=== PATIENT | male | born 1950 | race Caucasian/White ===

== ENCOUNTER → 2017-11-18 | Outpatient (CLI) | payer MEDICARE | END | disposition home or self-care (01) | LOC: LAB EV 18:29 | DX: E11.9 Type 2 diabetes mellitus without complications (principal) | CPT/HCPCS: 82043 ==

== ENCOUNTER → 2019-01-21 | Outpatient (CLI) | payer MEDICARE ==
[2019-01-21 14:13] LABS: Creatinine, Urine Random 94.1 mg/dL (27.00-270.00)
[2019-01-21 14:15] LABS: Microalb/Creat Ratio UR, Rand 39.958 mg/g (0.000-30.000); Microalbumin, Random Urine 37.6 mg/L (0.000-20.000)
== END | disposition home or self-care (01) ==
LOC: LAB EV 11:53 → LAB SHORT 11:53
PROVIDERS: Family Medicine
DX: E11.65 Type 2 diabetes mellitus with hyperglycemia (principal)
CPT/HCPCS: 82043; 82570

== ENCOUNTER 2019-05-07 12:46 | Day surgery (SDC) | payer MEDICARE ==
[~2019-05-07] VITALS: Ht 182.9 cm; Wt 127.7 kg
[~2019-05-07 12:46] MED LIST: ASCO500 PO; Benicar40 MG PO; CHOL10002 PO; FERSU300 PO; GLIM4 PO; INVOKANA100 MG PO; JANUMET XR 50-1 EAC1 PO; LO-DOSE ASPIRIN81 MG PO; NIAC500 PO; Zocor20 MG PO
--- NOTE | 2019-05-07 14:29 | NUR ---
05/07/19 [address] [place] UPDATED PATIENT AND ABOUT THE DELAY. IS OUT RUNNING ERRANDS AND SHE REQUESTED THAT WE CALL WHEN WE ARE FINISHED.
== END 2019-05-07 17:28 | disposition home or self-care (01) ==
LOC: ORSCSDS 12:46
PROVIDERS: Internal Medicine Gastroenterology
PROC: 0DBH8ZX Excision of Cecum, Via Natural or Artificial Opening Endoscopic, Diagnostic (ICD-10-PCS; principal; 2019-05-07 14:00)
DX: Z12.11 Encounter for screening for malignant neoplasm of colon (principal); Z86.010 Personal history of colon polyps; D12.0 Benign neoplasm of cecum; K57.30 Diverticulosis of large intestine without perforation or abscess without bleeding; K64.8 Other hemorrhoids; G47.33 Obstructive sleep apnea (adult) (pediatric); E11.9 Type 2 diabetes mellitus without complications; I10 Essential (primary) hypertension; E78.00 Pure hypercholesterolemia, unspecified; D64.9 Anemia, unspecified; E78.5 Hyperlipidemia, unspecified; E66.9 Obesity, unspecified; Z68.38 Body mass index [BMI] 38.0-38.9, adult; Z79.899 Other long term (current) drug therapy
CPT/HCPCS: 82947; 88305; J2250; J2704; J7120

== ENCOUNTER → 2020-07-29 | Outpatient (CLI) | payer MEDICARE ==
[2020-07-29 10:10] LABS: BASOPHILS ABSOLUTE AUTO 0.04 K/mm3 (0.00-0.23); BASOPHILS PERCENT AUTO 1 % (0-2); EOSINOPHILS ABSOLUTE AUTO 0.23 K/mm3 (0.00-0.68); EOSINOPHILS PERCENT AUTO 3 % (0-6); Hematocrit 48.5 % (37.0-53.0); Hemoglobin 15.7 g/dL (13.5-17.5); IMMATURE GRAN ABSOLUTE AUTO 0.02 K/mm3 (0.00-0.10); IMMATURE GRAN PERCENT AUTO 0 % (0-1); LYMPHOCYTES PERCENT AUTO 17 % (21-46); MONOCYTES ABSOLUTE AUTO 0.65 K/mm3 (0.16-1.47); MONOCYTES PERCENT AUTO 8 % (4-13); Mean Corpuscular HGB 29.1 pg (26.0-34.0); Mean Corpuscular HGB Conc 32.4 g/dL (31.5-36.5); Mean Corpuscular Volume 90 fL (80-100); Mean Platelet Volume 11.2 fL (9.1-12.4); NEUTROPHILS ABSOLUTE AUTO 6.05 K/mm3 (1.96-9.15); NEUTROPHILS PERCENT AUTO 72 % (41-73); Platelet Count 209 K/mm3 (150-400); RDW Coefficient Variation 14.1 % (11.7-14.2); RDW Standard Deviation 46.4 fL (35.1-46.3); White Blood Cell Count 8.39 K/mm3 (4.00-11.30)
[2020-07-29 10:25] LABS: Alanine Aminotransfer (ALT/SGP 35 U/L (12-78); Albumin, Blood 3.6 g/dL (3.4-5.0); Albumin/Globulin Ratio 0.8 (0.8-1.8); Alk Phos 72 U/L (40-126); Anion Gap 12 mmol/L (6-16); Aspartate Aminotrans (AST/SGOT 22 U/L (12-37); Bilirubin, Total 0.6 mg/dL (0.1-1.0); Blood Urea Nitrogen 16 mg/dL (8-24); Bun/Creatinine Ratio 17.4 (12.0-20.0); CO2, Blood 26 mmol/L (21-32); Calcium, Blood 8.9 mg/dL (8.5-10.1); Chloride, Blood 102 mmol/L (98-108); Creatinine, Blood 0.92 mg/dL (0.60-1.20); Globulin, Blood 4.7 g/dL (2.2-4.0); Glomerular Filtration Rate >60 (60-); Glucose, Blood 212 mg/dL (70-99); Potassium, Blood 3.8 mmol/L (3.5-5.5); Sodium, Blood 140 mmol/L (136-145); Total Protein, Blood 8.3 g/dL (6.4-8.2)
[2020-07-29 10:27] LABS: Troponin I <0.017 ng/mL (0.000-0.040)
== END ==
LOC: LAB SHORT 10:05
PROVIDERS: General Practice
DX: R07.9 Chest pain, unspecified (principal)
CPT/HCPCS: 80053; 84484; 85025

== ENCOUNTER → 2020-08-14 | Outpatient (CLI) | payer MEDICARE | END | disposition home or self-care (01) | LOC: PLD 14:07 → LAB SHORT 14:07 | DX: D22.5 Melanocytic nevi of trunk (principal) | CPT/HCPCS: 88305 ==

== ENCOUNTER → 2021-07-23 | Outpatient (CLI) | payer MEDICARE ==
[~2021-07-23] MED LIST changes: +IRON PO; +JANUMET PO; -JANUMET XR 50-1 EAC1 PO; +JARDIANCE10 MG PO; +MULTIPLE VITAM1 EACH PO; +VITAMIN D31000 UNIT PO; +[UNRECOGNIZED DRUG - CODE] PO
== END | disposition home or self-care (01) ==
LOC: LAB SHORT 10:10
DX: E11.9 Type 2 diabetes mellitus without complications (principal)
CPT/HCPCS: 83036

== ENCOUNTER 2021-08-01 12:02 | Day surgery (SDC) | payer MEDICARE ==
[~2021-08-01] VITALS: Ht 182.9 cm; Wt 120.9 kg
--- NOTE | 2021-08-01 13:38 | NUR ---
Ambulatory in Day Surgery WITH JOSE. History, Chart, Medications and Allergies reviewed before start of procedure. Lungs clear T/O to Auscultation. Patient confirms NPO status and agrees with scheduled surgery. Pre-Op teaching done. Pt verbalizes understanding.
--- NOTE | 2021-08-01 14:20 | NUR ---
REPORT TO ARJUN HELLER.
--- NOTE | 2021-08-01 14:21 | NUR ---
UNABLE TO SCAN [facility] MD IS IN [facility]. GIVEN AT 1415.
--- NOTE | 2021-08-01 17:23 | NUR ---
ARRIVED IN PACU VSS DRESSING INTACT PATIENT ALERT ORIENTED.
--- NOTE | 2021-08-01 18:38 | NUR ---
PATIENT CAME BACK TO THE UNIT TODAY 08/01/21 AT 1800. POD 0 RIGHT TOTAL KNEE PATIENT IS ALERT AND ORIENTED X4. VS ARE WNL AND IS ON RA. PATIENT DENIES PAIN AT THIS TIME. PATIENT DID HAVE A SPINAL THOUGH HAS SENSATION TO BOTH LEGS AND CAN WIGGLE TOES. THE RIGHT KNEE HAS KETTY WRAP AND AQUACEL THAT IS C/D/I. HE IS TOLERATING SMALL AMOUNTS OF PO INTAKE AT THIS TIME. HE IS CURRENTLY LAYING IN BED. CALL LIGHT WITHIN REACH. IS AT BEDSIDE.
--- NOTE | 2021-08-02 04:11 | NUR ---
SHIFT SUMMARY POD 1 R TKA. PT [id number], HE HAS BEEN UP AND AMBULATING TO HALLWAYS. VOIDING. TOLERATING PO WELL. PAIN MANAGED PER EM[facility]. POLAR MAHNAZ IN PLACE, KETTY WRAP CDI. PLAN IS TO WORK WITH THERAPY TODAY AND DISCHARGE HOME.
[2021-08-02 04:42] LABS: BASOPHILS ABSOLUTE AUTO 0.01 K/mm3 (0.00-0.23); BASOPHILS PERCENT AUTO 0 % (0-2); EOSINOPHILS PERCENT AUTO 0 % (0-6); Hematocrit 41.6 % (37.0-53.0); Hemoglobin 13.4 g/dL (13.5-17.5); IMMATURE GRAN ABSOLUTE AUTO 0.05 K/mm3 (0.00-0.10); IMMATURE GRAN PERCENT AUTO 0 % (0-1); LYMPHOCYTES ABSOLUTE AUTO 0.95 K/mm3 (0.84-5.20); LYMPHOCYTES PERCENT AUTO 7 % (21-46); MONOCYTES ABSOLUTE AUTO 1.12 K/mm3 (0.16-1.47); MONOCYTES PERCENT AUTO 8 % (4-13); Mean Corpuscular HGB 29.1 pg (26.0-34.0); Mean Corpuscular HGB Conc 32.2 g/dL (31.5-36.5); Mean Corpuscular Volume 90 fL (80-100); Mean Platelet Volume 11.3 fL (9.1-12.4); NEUTROPHILS ABSOLUTE AUTO 11.47 K/mm3 (1.96-9.15); NEUTROPHILS PERCENT AUTO 84 % (41-73); Platelet Count 204 K/mm3 (150-400); RDW Coefficient Variation 13.9 % (11.7-14.2); RDW Standard Deviation 46.3 fL (35.1-46.3)
[2021-08-02 04:57] LABS: Anion Gap 4 mmol/L (6-16); Blood Urea Nitrogen 21 mg/dL (8-24); Bun/Creatinine Ratio 24.4 (12.0-20.0); CO2, Blood 28 mmol/L (21-32); Calcium, Blood 8.4 mg/dL (8.5-10.1); Chloride, Blood 106 mmol/L (98-108); Creatinine, Blood 0.86 mg/dL (0.60-1.20); Glomerular Filtration Rate >60 (60-); Glucose, Blood 218 mg/dL (70-99); Magnesium, Blood 1.8 mg/dL (1.6-2.4); Potassium, Blood 4.3 mmol/L (3.5-5.5); Sodium, Blood 138 mmol/L (136-145)
[2021-08-02] MEDS ORDERED: ENOX40I SC (06:25)
[2021-08-02] MEDS ORDERED: Norco 5-325 Ta1 EACH PO (06:25)
[2021-08-02] MEDS ORDERED: SULTRIDS PO (06:26)
[2021-08-02] MEDS ORDERED: PROM25 PO (06:26)
--- NOTE | 2021-08-02 11:52 | NUR ---
DISCHARGE PT DISCHARGED HOME FROM UNIT AT APROX 1130. PT GIVEN WRITTEN AND VERBAL DISCHARGE INSTRUCTIONS AND BOTH HE AND VERBALIZED UNDERSTANDING. IV REMOVED. WC TO CAR.
== END 2021-08-02 11:38 | disposition home or self-care (01) ==
LOC: ORSCMMR 12:02 → ORD 13:30 → ORSCMMR 14:30 → SURS 17:51 → ORSCMMR 08-02 11:38
PROVIDERS: Orthopaedic Surgery
PROC: 0SRC0J9 Replacement of Right Knee Joint with Synthetic Substitute, Cemented, Open Approach (ICD-10-PCS; principal; 2021-08-01 14:30)
PROC: 8E0YXBZ Computer Assisted Procedure of Lower Extremity (ICD-10-PCS; principal; 2021-08-01 14:30)
DX: M17.11 Unilateral primary osteoarthritis, right knee (principal); I10 Essential (primary) hypertension; E78.5 Hyperlipidemia, unspecified; G47.33 Obstructive sleep apnea (adult) (pediatric); E11.9 Type 2 diabetes mellitus without complications; Z86.73 Personal history of transient ischemic attack (TIA), and cerebral infarction without residual deficits; E66.01 Morbid (severe) obesity due to excess calories; Z68.36 Body mass index [BMI] 36.0-36.9, adult; Z79.899 Other long term (current) drug therapy; Z80.42 Family history of malignant neoplasm of prostate
CPT/HCPCS: 36415; 73560-RT; 80048; 82947; 83735; 85025; 90686; 97110; 97116; 97162; 97530; A9270; C1713; C1776; J0171; J0690; J0735; J1100; J1650; J1815; J1885; J2250; J2370; J2405; J2704; J2795; J3010; J3370; J7120

== ENCOUNTER 2024-10-29 07:52 | Day surgery (SDC) | payer OTHER ==
[~2024-10-29] VITALS: Ht 182.9 cm; Wt 119.2 kg
[~2024-10-29 07:52] MED LIST changes: +Benicar40 MG; -Benicar40 MG PO; +ENOX40I SC; +FERSU300; +GLIM4; -GLIM4 PO; +JANUMET 50-1,01 EACH; +JARDIANCE10 MG; -JARDIANCE10 MG PO; +Norco 5-325 Ta1 EACH PO; +PROM25 PO; +SULTRIDS PO; +Zocor20 MG; -Zocor20 MG PO
[2024-10-29] MEDS ORDERED: Lactated Ringer's 1,000 ML IV ONE ×2 (08:05→08:37)
[2024-10-29] MEDS ORDERED: Citric Acid/Sodium Citrate 30 ML BTL ONE (08:17)
[2024-10-29] MEDS ORDERED: JANUMET 50-1,01 EACH PO (08:26)
[2024-10-29] MEDS ORDERED: Aspir 8181 MG PO (08:27)
[2024-10-29] MEDS ORDERED: ASCORBIC ACID500 MG PO (08:28)
[2024-10-29] MEDS ORDERED: Vitamin D1000 UNI1 PO (08:28)
[2024-10-29] MEDS ORDERED: Vitamin D1000 UNI1 (08:28)
[2024-10-29] MEDS ORDERED: propofoL 50 ML IV ONE (08:32)
[2024-10-29 09:53] VITALS: BP 108/80
== END 2024-10-29 09:50 | disposition home or self-care (01) ==
LOC: ORSCSDS 07:52
PROVIDERS: Internal Medicine Gastroenterology
PROC: 0DBL8ZX Excision of Transverse Colon, Via Natural or Artificial Opening Endoscopic, Diagnostic (ICD-10-PCS; principal; 2024-10-29 09:15)
DX: Z12.11 Encounter for screening for malignant neoplasm of colon (principal); Z86.0101 Personal history of adenomatous and serrated colon polyps; Z87.19 Personal history of other diseases of the digestive system; D12.3 Benign neoplasm of transverse colon; K64.4 Residual hemorrhoidal skin tags; K57.30 Diverticulosis of large intestine without perforation or abscess without bleeding; Z85.46 Personal history of malignant neoplasm of prostate; E11.9 Type 2 diabetes mellitus without complications; G47.33 Obstructive sleep apnea (adult) (pediatric); E78.00 Pure hypercholesterolemia, unspecified; E66.9 Obesity, unspecified; Z68.35 Body mass index [BMI] 35.0-35.9, adult; Z79.84 Long term (current) use of oral hypoglycemic drugs; Z79.899 Other long term (current) drug therapy
CPT/HCPCS: 82947; 88305; A9270; J2704; J7120